=== PATIENT | male | born 1975 | race Caucasian/White ===

== ENCOUNTER 2018-01-04 14:31 | Observation (INO) | payer OTHER ==
--- NOTE | 2018-01-04 15:34 | RAD REPORT ---
EXAM DESCRIPTION: Jayme Single View01/04/2018 3:26 pm CLINICAL HISTORY: Chest pain COMPARISON: none FINDINGS: The lungs appear clear of acute infiltrate. The heart is normal size IMPRESSION: No acute abnormalities displayed
[2018-01-04] MEDS ORDERED: METOPROLOL TAR 50 MG TAB ONE (15:47)
[2018-01-04] MEDS ORDERED: ASPIRIN 81 MG CHEWABLE TABLET ONE (15:47)
[2018-01-04] MEDS ORDERED: NA CHLORIDE 0.9% 1,000 ML ONE (15:48)
[2018-01-04] MEDS ORDERED: FAMOTIDINE 20 MG/2 ML VIAL IV ONE (15:48)
[2018-01-04 16:05] LABS: Protime INR 1.11
[2018-01-04 16:07] LABS: Absolute Lymphocytes (CBC) 1.2 K/uL (0.7-4.9); Absolute Monocytes 0.5 K/uL (0.1-1.3); Absolute Neutrophil 8.3 K/uL (1.8-8.0); Basophils % 0.4 % (0-1.3); Hematocrit 45.5 % (39.6-49.0); Lymphocytes % 12.1 % (15.3-44.8); MCH 30.7 pg (27.0-35.0); MCV 87.1 fL (80-100); MPV 9.5 fL (7.6-11.3); Monocytes % 5.3 % (3.3-12.3); RBC Red Blood Cell Count 5.22 M/uL (4.33-5.43)
[2018-01-04] MEDS ORDERED: LIDOCAINE VISCOUS 2% SOLN 15 ML UDC ONE (16:10)
[2018-01-04] MEDS ORDERED: MAGNE/ALUM HYDROXD 30 ML UCUP ONE (16:10)
[2018-01-04 16:13] LABS: ALT/SGPT 48 U/L (12-78); AST/SGOT 22 U/L (15-37); Albumin 4.5 g/dL (3.4-5.0); Alkaline Phosphatase 82 U/L (45-117); BUN Blood Urea Nitrogen 16 mg/dL (7-18); Bicarbonate 30 mmol/L (21-32); Bilirubin Direct 0.1 mg/dL (0-0.2); Bilirubin Total 0.4 mg/dL (0.2-1.0); Glucose Level 113 mg/dL (74-106); Lipase 139 U/L (73-393); Magnesium 2.1 mg/dL (1.8-2.4); NT PRO-BNP 7 pg/mL (<125); Potassium 4.5 mmol/L (3.5-5.1); Sodium Level 138 mmol/L (136-145); Troponin (Emerg Dept Use Only) < 0.02 ng/mL (0.0-0.045)
[2018-01-04 16:32] LABS: Urine Blood NEGATIVE (NEG); Urine Glucose NEGATIVE (NEG); Urine Protein NEGATIVE (NEG); Urine pH 6.5 (5.0-7.0)
--- NOTE | 2018-01-04 16:57 | RAD REPORT ---
EXAM DESCRIPTION: CT - Chest For Pe Angio - 01/04/2018 4:42 pm CLINICAL HISTORY: Chest pain. CHEST PAIN COMPARISON: No comparisons TECHNIQUE: CT angiogram of the pulmonary arteries was performed with MIP. All CT scans are performed using dose optimization technique as appropriate and may include automated exposure control or mA/KV adjustment according to patient size. FINDINGS: No evidence of pulmonary thromboembolism. No acute aortic finding demonstrated. The lungs are clear. No significant pericardial or pleural fluid. No concerning bony finding. IMPRESSION: No evidence of pulmonary thromboembolism. No acute lung findings.
--- NOTE | 2018-01-04 17:55 | ER ---
Nurse's Notes [facility] Name: Humphrey Samuels Age: 42 yrs Sex: Male : 1975 Arrival Date: 01/04/2018 Time: 14:36 Bed 17 Private MD: Diagnosis: Chest pain, unspecified;Functional dyspepsia Presentation: 01/04 14:37 Presenting complaint: Patient states: dizzyness and chest pressure, I have had issues ch with my GERD, and it feel like food is getting stuck when I eat. Last night and today I have had chest pressure and been very dizzy, with one normal BM then two rounds of diarrhea. Transition of care: patient was not received from another setting of care. Onset of symptoms was January 03, 2018. Risk Assessment: Do you want to hurt yourself or someone else? Patient reports no desire to harm self or others. Initial Sepsis Screen: Does the patient meet any 2 criteria? No. Patient's initial sepsis screen is negative. Does the patient have a suspected source of infection? No. Patient's initial sepsis screen is negative. Care prior to arrival: None. 14:37 Method Of Arrival: Ambulatory 14:37 Acuity: GENO 3 ch Triage Assessment: 14:41 General: Appears in no apparent distress. comfortable, Behavior is calm, cooperative, ch appropriate for age. Pain: Complains of pain in chest. Cardiovascular: Reports chest pressure/dizzyness. Historical: - Allergies: 14:41 No Known Allergies; ch - Home Meds: 14:41 Omeprazole Oral [Active]; cholestol medications [Active]; - PMHx: 14:41 cholesterol; GERD; IBS; ch - PSHx: 14:45 Appendectomy; rb1 - Immunization history:: Adult Immunizations up to date. - Social history:: Smoking status: Patient/guardian denies using tobacco. - Ebola Screening: : Patient negative for fever greater than or equal to 101.5 degrees Fahrenheit, and additional compatible Ebola Virus Disease symptoms Patient denies exposure to infectious person Patient denies travel to an Ebola-affected area in the 21 days before illness onset No symptoms or risks identified at this time. - Family history:: not pertinent. Screenin:45 Abuse screen: Denies threats or abuse. Nutritional screening: No deficits noted. rb1 Tuberculosis screening: No symptoms or risk factors identified. Fall Risk None identified. Assessment: 14:45 General: Appears in no apparent distress. comfortable, Behavior is calm, cooperative. rb1 Pain: Complains of pain in mid-sternal area Pain radiates to throat Pain currently is 3 out of 10 on a pain scale. Pain began x 1 week. Pain: Aggravated by eating. Neuro: Level of Consciousness is awake, alert, obeys commands, Oriented to person, place, time, situation. Cardiovascular: Capillary refill < 3 seconds is brisk in bilateral fingers. Respiratory: Airway is patent Respiratory effort is even, unlabored, Respiratory pattern is regular, symmetrical. GI: Reports diarrhea. : No signs and/or symptoms were reported regarding the genitourinary system. Derm: Skin is dry, Skin is normal, Skin temperature is warm. 14:45 General: Pt. c/o indigestion and acid reflex.. Neuro: Reports dizziness. rb1 15:45 Reassessment: Patient appears in no apparent distress at this time. No changes from rb1 previously documented assessment. 16:40 Reassessment: Patient appears in no apparent distress at this time. Patient and/or rb1 family updated on plan of care and expected duration. Pain level reassessed. Patient is alert, oriented x 3, equal unlabored respirations, skin warm/dry/pink. at bedside. 17:38 Reassessment: Patient appears in no apparent distress at this time. Provider at bedside.rb1 18:14 Reassessment: No changes from previously documented assessment. Patient and/or family rb1 updated on plan of care and expected duration. Pain level reassessed. Patient is alert, oriented x 3, equal unlabored respirations, skin warm/dry/pink. Pt. refused the Lovenox after being educated on the medication and purpose. Pt. stated, "All the tests came back good, they're just keeping me overnight to speak with cardiology in the morning. I don't want the shot. I don't feel it is necessary.". 18:19 Reassessment: I tried to call report to second floor and was put on hold. Then Sobeida rb1 asked if the nurse could call me back at my extension. 18:28 Reassessment: Dr. Del Angel is at the pt. bedside. rb1 19:29 Reassessment: Patient appears in no apparent distress at this time. Patient and/or jb4 family updated on plan of care and expected duration. Pain level reassessed. Patient is alert, oriented x 3, equal unlabored respirations, skin warm/dry/pink. Patient states feeling better. General: Appears in no apparent distress. comfortable, Behavior is calm, cooperative. Pain: Denies pain. Neuro: Level of Consciousness is awake, alert, obeys commands, Oriented to person, place, time, situation. Cardiovascular: Patient's skin is warm and dry. Respiratory: Airway is patent Respiratory effort is even, unlabored, Respiratory pattern is regular, symmetrical. GI: Reports intermittent nausea. Derm: Skin is intact, Skin is pink, warm \\T\\ dry. Vital Signs: 14:41 BP 160 / 96; Pulse 97; Resp 15; Temp 98.3; Pulse Ox 99% on R/A; Weight 91.63 kg; Height ch 5 ft. 9 in. (175.26 cm); Pain 3/10; 15:30 BP 139 / 90; Pulse 88; Resp 16; Pulse Ox 100% on R/A; rb1 16:30 BP 141 / 93; Pulse 87; Resp 15; Pulse Ox 100% ; rb1 17:30 BP 139 / 87; Pulse 75; Resp 16; Pulse Ox 99% on R/A; rb1 18:20 BP 142 / 99; Pulse 69; Resp 15; Pulse Ox 100% on R/A; rb1 19:00 BP 137 / 93; Pulse 74; Resp 16; Pulse Ox 98% on R/A; jb4 14:41 Body Mass Index 29.83 (91.63 kg, 175.26 cm) ED Course: 14:36 Patient arrived in ED. 14:38 Triage completed. 14:41 Arm band placed on left wrist. Patient placed in an exam room, on a stretcher. EKG ch completed in triage. Results shown to MD. 14:42 EKG done, by ekg technician. at1 14:45 Patient maintains SpO2 saturation greater than 95% on room air. rb1 14:45 Patient has correct armband on for positive identification. Bed in low position. Call rb1 light in reach. Side rails up X 1. Pulse ox on. NIBP on. Warm blanket given. 14:50 Alonzo Hill MD is Attending Physician. [facility] 15:19 Luda Petty, RN is Primary Nurse. rb1 15:26 XRAY Chest (1 view) In Process Unspecified. EDMS 15:30 Inserted saline lock: 20 gauge in right antecubital area, using aseptic technique. rb1 ,using aseptic technique. IV inserted by BRAXTON Lopez. Blood collected. 16:43 CT Chest For PE Angio In Process Unspecified. EDMS 16:43 REPEAT EKG DONE. sm3 17:54 Maribel Del Angel MD is Hospitalizing Provider. [facility] 19:00 Report given to OMER Colunga. rb1 19:40 No provider procedures requiring assistance completed. Patient admitted, IV remains in jb4 place. 20:26 Primary Nurse role handed off by Luda Petty, OMER jb4 20:26 Rajesh Lazaro, RN is Primary Nurse. jb4 Administered Medications: 15:50 Drug: Pepcid 20 mg Route: IVP; Site: right antecubital; rb1 17:32 Follow up: Response: No adverse reaction rb1 15:50 Drug: NS 0.9% 1000 ml Route: IV; Rate: 125 ml/hr; Site: right antecubital; rb1 15:51 Drug: Aspirin Chewable Tablet 324 mg Route: PO; rb1 16:30 Follow up: Response: No adverse reaction rb1 15:51 Drug: Lopressor (metoprolol TARTRATE) 50 mg Route: PO; rb1 16:30 Follow up: Response: No adverse reaction rb1 16:09 Drug: GI Cocktail without - (Maalox Suspension 30 ml, Lidocaine Liquid 2 % 15 rb1 ml) Route: PO; 16:30 Follow up: Response: No adverse reaction; Marked relief of symptoms rb1 18:14 Not Given (Patient Refused): Lovenox 1 mg/kg Sub-Q once rb1 Outcome: 17:54 Decision to Hospitalize by Provider. [facility] 19:40 Condition: stable jb4 19:40 Instructed on the need for admit, Demonstrated understanding of instructions. 19:40 Admitted to Med/surg accompanied by tech, via wheelchair, room 207, with chart. jb4 20:26 Patient left the ED. jb4 Signatures: Dispatcher [employer] EDMS Maria G Lugo, RN Alonzo Hdez ch, MD MD cha Gonzales, Amanda, electric motors salesperson EKG Tat1 Luda Petty RN RN rb1 Rajesh Lazaro RN RN 4 Daksha Roldan 3 Corrections: (The following items were deleted from the chart) 01/05 02:00 01/04 19:40 Admitted to Tele accompanied by tech, via wheelchair, room 419, with chart, jb4 Report called to OMER June jb4
--- NOTE | 2018-01-04 17:55 | EDPHYS ---
Physician Documentation [facility] Name: Humphrey Samuels Age: 42 yrs Sex: Male : 1975 Arrival Date: 01/04/2018 Time: 14:36 Bed 17 Private MD: ED Physician Alonzo Hill HPI: 01/04 15:26 This 42 yrs old Male presents to ER via Ambulatory with complaints of Chest nishant Pressure. 15:26 The patient or guardian reports chest pain that is located primarily in the substernal nishant area, epigastric area. Onset: 24 hour(s) ago. The pain does not radiate. Associated signs and symptoms: The patient has no apparent associated signs or symptoms. The chest pain is described as causing indigestion. Severity of pain: At its worst the pain was mild in the emergency department the pain is unchanged. The patient has experienced similar episodes in the past, several times. Historical: - Allergies: 14:41 No Known Allergies; ch - Home Meds: 14:41 Omeprazole Oral [Active]; cholestol medications [Active]; ch - PMHx: 14:41 cholesterol; GERD; IBS; ch - PSHx: 14:45 Appendectomy; rb1 - Immunization history:: Adult Immunizations up to date. - Social history:: Smoking status: Patient/guardian denies using tobacco. - Ebola Screening: : Patient negative for fever greater than or equal to 101.5 degrees Fahrenheit, and additional compatible Ebola Virus Disease symptoms Patient denies exposure to infectious person Patient denies travel to an Ebola-affected area in the 21 days before illness onset No symptoms or risks identified at this time. - Family history:: not pertinent. ROS: 15:26 Constitutional: Negative for fever, chills, and weight loss, Eyes: Negative for injury, nishant pain, redness, and discharge, ENT: Negative for injury, pain, and discharge, Neck: Negative for injury, pain, and swelling, Respiratory: Negative for shortness of breath, cough, wheezing, and pleuritic chest pain, Back: Negative for injury and pain, : Negative for injury, bleeding, discharge, and swelling, MS/Extremity: Negative for injury and deformity, Skin: Negative for injury, rash, and discoloration, Neuro: Negative for headache, weakness, numbness, tingling, and seizure, Psych: Negative for depression, anxiety, suicide ideation, homicidal ideation, and hallucinations, Allergy/Immunology: Negative for hives, rash, and allergies, Endocrine: Negative for neck swelling, polydipsia, polyuria, polyphagia, and marked weight changes, Hematologic/Lymphatic: Negative for swollen nodes, abnormal bleeding, and unusual bruising. 15:26 Cardiovascular: Positive for chest pain. 15:26 Abdomen/GI: Positive for abdominal pain, of the epigastric area. Exam: 15:26 Constitutional: This is a well developed, well nourished patient who is awake, alert, nishant and in no acute distress. Head/Face: Normocephalic, atraumatic. Eyes: Pupils equal round and reactive to light, extra-ocular motions intact. Lids and lashes normal. Conjunctiva and sclera are non-icteric and not injected. Cornea within normal limits. Periorbital areas with no swelling, redness, or edema. ENT: Nares patent. No nasal discharge, no septal abnormalities noted. Tympanic membranes are normal and external auditory canals are clear. Oropharynx with no redness, swelling, or masses, exudates, or evidence of obstruction, uvula midline. Mucous membranes moist. Neck: Trachea midline, no thyromegaly or masses palpated, and no cervical lymphadenopathy. Supple, full range of motion without nuchal rigidity, or vertebral point tenderness. No Meningismus. Chest/axilla: Normal chest wall appearance and motion. Nontender with no deformity. No lesions are appreciated. Cardiovascular: Regular rate and rhythm with a normal S1 and S2. No gallops, murmurs, or rubs. Normal PMI, no JVD. No pulse deficits. Respiratory: Lungs have equal breath sounds bilaterally, clear to auscultation and percussion. No rales, rhonchi or wheezes noted. No increased work of breathing, no retractions or nasal flaring. Abdomen/GI: Soft, non-tender, with normal bowel sounds. No distension or tympany. No guarding or rebound. No evidence of tenderness throughout. Back: No spinal tenderness. No costovertebral tenderness. Full range of motion. Male : Normal genitalia with no discharge or lesions. Skin: Warm, dry with normal turgor. Normal color with no rashes, no lesions, and no evidence of cellulitis. MS/ Extremity: Pulses equal, no cyanosis. Neurovascular intact. Full, normal range of motion. Neuro: Awake and alert, GCS 15, oriented to person, place, time, and situation. Cranial nerves II-XII grossly intact. Motor strength 5/5 in all extremities. Sensory grossly intact. Cerebellar exam normal. Normal gait. Psych: Awake, alert, with orientation to person, place and time. Behavior, mood, and affect are within normal limits. Vital Signs: 14:41 BP 160 / 96; Pulse 97; Resp 15; Temp 98.3; Pulse Ox 99% on R/A; Weight 91.63 kg; Height ch 5 ft. 9 in. (175.26 cm); Pain 3/10; 15:30 BP 139 / 90; Pulse 88; Resp 16; Pulse Ox 100% on R/A; rb1 16:30 BP 141 / 93; Pulse 87; Resp 15; Pulse Ox 100% ; rb1 17:30 BP 139 / 87; Pulse 75; Resp 16; Pulse Ox 99% on R/A; rb1 18:20 BP 142 / 99; Pulse 69; Resp 15; Pulse Ox 100% on R/A; rb1 19:00 BP 137 / 93; Pulse 74; Resp 16; Pulse Ox 98% on R/A; jb4 14:41 Body Mass Index 29.83 (91.63 kg, 175.26 cm) ch MDM: 14:50 Patient medically screened. [facility] 15:33 Data reviewed: vital signs, nurses notes, lab test result(s), EKG, radiologic studies, nishant plain films. 01/04 15:02 Order name: Basic Metabolic Panel; Complete Time: 16:16 [facility] 01/04 15:02 Order name: CBC with Diff; Complete Time: 16:16 [facility] 01/04 15:02 Order name: LFT's; Complete Time: 16:16 [facility] 01/04 15:02 Order name: Magnesium; Complete Time: 16:16 [facility] 01/04 15:02 Order name: NT PRO-BNP; Complete Time: 16:16 [facility] 01/04 15:02 Order name: PT-INR; Complete Time: 16:16 [facility] 01/04 15:02 Order name: Troponin (emerg Dept Use Only); Complete Time: 16:16 [facility] 01/04 15:02 Order name: XRAY Chest (1 view); Complete Time: 16:16 [facility] 01/04 15:02 Order name: Lipase; Complete Time: 16:16 [facility] 01/04 16:01 Order name: Urine Dipstick--Ancillary (enter results) 01/04 16:01 Order name: Urine Dipstick-Ancillary; Complete Time: 17:00 [facility] 01/04 16:18 Order name: Troponin (emerg Dept Use Only) [facility] 01/04 16:21 Order name: Troponin (emerg Dept Use Only) [facility] 01/04 17:20 Order name: Troponin (emerg Dept Use Only); Complete Time: 18:10 [facility] 01/04 15:02 Order name: EKG; Complete Time: 15:03 [facility] 01/04 15:02 Order name: Cardiac monitoring; Complete Time: 17:33 [facility] 01/04 15:02 Order name: EKG - Nurse/Tech; Complete Time: 17:33 [facility] 01/04 15:02 Order name: IV Saline Lock; Complete Time: 15:52 [facility] 01/04 15:02 Order name: Labs collected and sent; Complete Time: 15:52 [facility] 01/04 16:18 Order name: CT Chest For PE Angio; Complete Time: 17:00 [facility] 01/04 16:19 Order name: EKG; Complete Time: 16:20 [facility] 01/04 16:21 Order name: Echo w/ Doppler [facility] 01/04 17:58 Order name: CONS Physician Consult [facility] 01/04 17:58 Order name: CONS Physician Consult [facility] 01/04 15:02 Order name: O2 Per Protocol; Complete Time: 15:30 [facility] 01/04 15:02 Order name: O2 Sat Monitoring; Complete Time: 15:30 [facility] 01/04 16:19 Order name: EKG - Nurse/Tech; Complete Time: 17:17 [facility] 01/04 16:21 Order name: Repeat Cardiac Enzymes at: 500 pm; Complete Time: 17:57 [facility] Administered Medications: 15:50 Drug: Pepcid 20 mg Route: IVP; Site: right antecubital; rb1 17:32 Follow up: Response: No adverse reaction rb1 15:50 Drug: NS 0.9% 1000 ml Route: IV; Rate: 125 ml/hr; Site: right antecubital; rb1 15:51 Drug: Aspirin Chewable Tablet 324 mg Route: PO; rb1 16:30 Follow up: Response: No adverse reaction rb1 15:51 Drug: Lopressor (metoprolol TARTRATE) 50 mg Route: PO; rb1 16:30 Follow up: Response: No adverse reaction rb1 16:09 Drug: GI Cocktail without - (Maalox Suspension 30 ml, Lidocaine Liquid 2 % 15 rb1 ml) Route: PO; 16:30 Follow up: Response: No adverse reaction; Marked relief of symptoms rb1 18:14 Not Given (Patient Refused): Lovenox 1 mg/kg Sub-Q once rb1 Disposition: 01/04/18 17:54 Hospitalization ordered by Maribel Del Angel for Observation. Preliminary diagnosis are Chest pain, unspecified, Functional dyspepsia. - Bed requested for Telemetry/MedSurg (observation). - Status is Observation. jb4 - Condition is Stable. - Problem is new. - Symptoms have improved. UTI on Admission? No Signatures: Dispatcher [employer] EDMS Maria G Lugo, RN RN Shira Mejia RN RN Alonzo Rasmussen MD MD cha Barber, Rebecca, RN OMER rb1 Rajesh Lazaro RN RN jb4 Corrections: (The following items were deleted from the chart) 16:20 16:18 Repeat Cardiac Enzymes at [facility] 18:13 17:54 Hospitalization Ordered by Maribel Del Angel MD for Observation. Preliminary diagnosis dw is Chest pain, unspecified; Functional dyspepsia. Bed requested for Telemetry/MedSurg (observation). Status is Observation. Condition is Stable. Problem is new. Symptoms have improved. UTI on Admission? No. [facility] 20:26 18:13 01/04/2018 17:54 Hospitalization Ordered by Maribel Del Angel MD for Observation. jb4 Preliminary diagnosis is Chest pain, unspecified; Functional dyspepsia. Bed requested for Telemetry/MedSurg (observation). Status is Observation. Condition is Stable. Problem is new. Symptoms have improved. UTI on Admission? No. dw
[2018-01-04] MEDS ORDERED: ENOXAPARIN 100 MG/ML SYR SQ ONE (18:15)
--- NOTE | 2018-01-04 18:56 | P.HP ---
Certification for Inpatient Patient admitted to: Observation With expected LOS: <2 Midnights Practitioner: I am a practitioner with admitting privileges, knowledge of patient current condition, hospital course, and medical plan of care. Services: Services provided to patient in accordance with Admission requirements found in Title 42 Section 412.3 of the Code of Federal Regulations Patient History Date of Service: 01/04/18 Reason for admission: Chest pressure History of Present Illness: This is a 42-year-old male with history of GERD admitted for chest pressure. States that this has been going on for the past 2 weeks, progressively worsening. Now associated with dizziness, lightheadedness and intermittent nausea not alleviated with his previous reflux medications. Denies any shortness of breath, vision changes, headaches, fevers, chills or any abdominal or issues. Allergies No Known Allergies Allergy (Unverified 01/04/18 18:42) - Past Medical/Surgical History -: GERD - Social History Smoking Status: Never smoker Review of Systems General: Unremarkable Eyes: Unremarkable ENT: Unremarkable Respiratory: Unremarkable Cardiovascular: Chest Pain, Light Headedness, As per HPI Gastrointestinal: Unremarkable Genitourinary: Unremarkable Musculoskeletal: Unremarkable Integumentary: Unremarkable Neurological: Unremarkable Physical Examination - Physical Exam General: Alert, In no apparent distress HEENT: Atraumatic, PERRLA, Mucous membr. moist/pink, EOMI, Sclerae nonicteric Neck: Supple, 2+ carotid pulse no bruit, No LAD, Without JVD or thyroid abnormality Respiratory: Clear to auscultation bilaterally, Normal air movement Cardiovascular: Regular rate/rhythm, Normal S1 S2 Gastrointestinal: Normal bowel sounds, No tenderness Musculoskeletal: No tenderness Integumentary: No rashes Neurological: Normal gait, Normal speech, Normal strength at 5/5 x4 extr, Normal tone, Normal affect Lymphatics: No axilla or inguinal lymphadenopathy - Studies Laboratory Data (last 24 hrs) 01/04/18 15:40: PT 13.1 H, INR 1.11 01/04/18 15:40: WBC 10.3, Hgb 16.0, Hct 45.5, Plt Count 247 01/04/18 15:40: Sodium 138, Potassium 4.5, BUN 16, Creatinine 1.00, Glucose 113 H, Magnesium 2.1, Total Bilirubin 0.4, AST 22, ALT 48, Alkaline Phosphatase 82, Lipase 139 Assessment and Plan - Problems (Diagnosis) (1) Chest pain, rule out acute myocardial infarction Current Visit: Yes Status: Acute Plan: Admit for observation on tele. Trend troponins and EKG. Cardiology consulted from the ER. Continue aspirin. Morphine and nitro p.r.n. pain Oxygen via nasal cannula as needed (2) GERD (gastroesophageal reflux disease) Current Visit: Yes Status: Acute Plan: Patient with a lot of her related issues in the past. This time pain not alleviated with history normal medications. Dr. dyer, camera repair technician has been consulted from the ER. We will try an attempt to get in touch with him tomorrow if not patient may have to followup outpatient. Start Protonix. Quick Discharge Plan: Home Plan to discharge in: 24 Hours - Advance Directives Does patient have a Living Will: No Does patient have a Durable POA for Healthcare: No
[2018-01-04] MEDS ORDERED: ALBUTEROL 2.5 MG/3 ML NEB SOL NEB PRN (20:03)
[2018-01-04] MEDS ORDERED: ACETAMINOPHEN 500 MG TAB PO PRN (20:03)
[2018-01-04] MEDS ORDERED: NITROGLYCERIN 0.4 MG/TAB SL PRN (20:03)
[2018-01-04] MEDS ORDERED: PANTOPRAZOLE 40MG TABLET PO ONE (20:03)
[2018-01-04] MEDS ORDERED: ONDANSETRON 4 MG/2 ML VIAL IV PRN (20:03)
[2018-01-04] MEDS: MAGNES/ALUMIN/SIMET 30ML UCUP PO PRN (23:12)
[2018-01-05 05:37] LABS: Absolute Lymphocytes (CBC) 2.4 K/uL (0.7-4.9); Absolute Monocytes 0.7 K/uL (0.1-1.3); Absolute Neutrophil 4.6 K/uL (1.8-8.0); Basophils % 0.9 % (0-1.3); Eosinophils % 3.6 % (0-4.4); Lymphocytes % 30.1 % (15.3-44.8); MCH 31.1 pg (27.0-35.0); MPV 9.2 fL (7.6-11.3); Monocytes % 8.3 % (3.3-12.3)
[2018-01-05 05:56] LABS: ALT/SGPT 41 U/L (12-78); AST/SGOT 22 U/L (15-37); Albumin 3.9 g/dL (3.4-5.0); Alkaline Phosphatase 77 U/L (45-117); BUN Blood Urea Nitrogen 13 mg/dL (7-18); Bicarbonate 25 mmol/L (21-32); Bilirubin Total 0.4 mg/dL (0.2-1.0); CKMB Creatine Kinase MB < 1.0 ng/mL (0.3-3.6); Creatine Phosphokinase 51 U/L (39-308); Glucose Level 95 mg/dL (74-106); Phosphorus 3.2 mg/dL (2.5-4.9); Potassium 3.9 mmol/L (3.5-5.1); Protein, Total 7.3 g/dL (6.4-8.2); Sodium Level 139 mmol/L (136-145); Troponin I < 0.02 ng/mL (0.0-0.045)
[2018-01-05] MEDS ORDERED: POTASSIUM CL SA 10 MEQ TAB PO ONE (06:21)
[2018-01-05] MEDS ORDERED: PANTOPRAZOLE 40MG TABLET PO SCH (06:30)
--- NOTE | 2018-01-05 07:52 | EKG ---
Test Date: 2018-01-04 Test Time: 16:40:04 Coke Burner: SHARLA MEASUREMENT RESULTS: Intervals: Rate: 102 DE: 140 QRSD: 78 QT: 334 QTc: 435 [place]: P: 48 DE: 140 QRS: 40 T: 40 INTERPRETIVE STATEMENTS: Sinus tachycardia Possible Left atrial enlargement Borderline ECG Compared to ECG 01/04/2018 14:36:36 Sinus rhythm no longer present Electronically Signed On 01-05-18 07:51:32 CDT by Adrien Shah
--- NOTE | 2018-01-05 07:53 | EKG ---
Test Date: 2018-01-04 Test Time: 14:36:36 Telegraph Inspector: SHERRY MEASUREMENT RESULTS: Intervals: Rate: 91 ID: [id number] QRSD: 76 QT: 348 QTc: 428 [place]: P: 45 ID: [id number] QRS: 27 T: 40 INTERPRETIVE STATEMENTS: Normal sinus rhythm Normal ECG No previous ECG available for comparison Electronically Signed On 01-05-18 07:51:56 CDT by Adrien Shah
[2018-01-05] MEDS ORDERED: INFLUENZA VACCINE (for 3y+) 0.5 ML DOSE IMVAC ONE (08:00)
--- NOTE | 2018-01-05 08:02 | ECHO ---
HEIGHT: 5 ft 9 in WEIGHT: 198 lb 12.8 oz DATE OF STUDY: 01/04/[address]: Alonzo Hill MD 2-DIMENSIONAL: YES M.MODE: YES DOPPLER: YES COLOR FLOW: YES TDS: NO PORTABLE: NO DEFINITY: NO BUBBLE STUDY: NO DIAGNOSIS: CHEST PAIN CARDIAC HISTORY: CATHERIZATION: NO SURGERY: NO PROSTHETIC VALVE: NO PACEMAKER: NO MEASUREMENTS (cm) DIASTOLIC (NORMALS) SYSTOLIC (NORMALS) IVSd 0.8 (0.6-1.2) LA Diam 2.8 (1.9-4.0) LVEF 65% LVIDd 4.9 (3.5-5.7) LVIDs 3.1 (2.0-3.5) %FS 36% LVPWd 0.9 (0.6-1.2) Ao Diam 2.9 (2.0-3.7) 2 DIMENSIONAL ASSESSMENT: RIGHT ATRIUM: NORMAL LEFT ATRIUM: NORMAL RIGHT VENTRICLE: NORMAL LEFT VENTRICLE: NORMAL TRICUSPID VALVE: NORMAL MITRAL VALVE: NORMAL PULMONIC VALVE: NORMAL AORTIC VALVE: NORMAL PERICARDIAL EFFUSION: NONE AORTIC ROOT: NORMAL LEFT VENTRICULAR WALL MOTION: DOPPLER/COLOR FLOW: PHYSIOLOGIC TRICUSPID REGURGITATION. NORMAL RIGHT VENTRICULAR SYSTOLIC PRESSURE. COMMENTS: NORMAL 2D ECHOCARDIORAM WITH DOPPLER. TECHNOLOGIST: Francisco HESS
[2018-01-05] MEDS: MAGNES/ALUMIN/SIMET 30ML UCUP PO PRN (08:51)
[2018-01-05] MEDS ORDERED: ROSUVASTATIN 10 MG TAB PO SCH ×2 (09:00→21:00)
[2018-01-05] MEDS ORDERED: ENOXAPARIN 40 MG/0.4 ML SQ SCH (09:00)
--- NOTE | 2018-01-05 14:31 | TREADMILL ---
70% H.R.: 123 85% H.R.: 150 90% H.R.: 158 100% H.R.: 176 DX: CHEST PAIN Date of Study: 01/05/2018 Ht: 5 9 Wt: 198 lb 12.8 oz Consulting Physician: JN MEDICATIONS: TYLENOL, PROVENTIL, LOVENOX, NITROSTAT, ZOFRAN, PROTONIX HISTORY: 42 YEAR OLD MALE WITH CHEST PAIN. PHYSICIAL EXAMINATION: RESTING B.P.: 116/85 RESTING H.R.: 88 RESTING EKG: NORMAL PROTOCOL: CAMERON/ ROUTINE EXERCISE TIME: 7:32 MAXIMUM HEART RATE: 162 % OF PREDICTED B.P. AT PEAK STRESS: 145/72 H.R. AT 1 MINUTE POST EXERCISE: 148 IMPRESSION: ROUTINE BRUCCE STRESS TEST STOPPED FOR FATIGUE AND TARGET HEART RATE REACHED. NO CHEST PAIN. NO VENTRICULAR TACHYCARDIA. NORMAL STRESS TEST. NO ST DEPRESSION WITH STRESS.
--- NOTE | 2018-01-05 15:34 | CON ---
A 42-year-old man. History Of Present Illness: Mr. Samuels had chest pain. He had several days of it in a row without any relief. It went away for a day and returned. The pain is constant, located in the epigastric regio n, does not seem to go away and not exacerbated by anything, swallowing foods seemed to help. Stanleya l years ago, he was found to have gastroesophageal reflux disease with a stricture. It was ballooned . Now, this pain feels like a peanut butter sandwich is stuck in his esophagus. He is able to work normally and does not have exertional intolerance, dyspnea. No nausea or vomiting. There has been a little sweating. He has dyslipidemia that is well controlled using Crestor. He also takes vitamin C, vitamin D3, omeprazole, omega-3 fatty acid, and multivitamins. He uses no tobacco. There is no h istory of myocardial infarction, stroke, diabetes. Physical Examination: Vital signs: 5 feet 9 inches, 198 pounds. General: Overweight. Alert, oriented, pleasant, not in distress. Neck: No carotid bruit. Lungs: Clear. Heart: Normal. Extremities: Normal. Laboratory Data: Electrocardiogram is normal. His troponins are normal. I would recommend we do a stress test and echo. If those are normal, he should see his GI doctor and perhaps he needs another esophageal dilation. His echocardiogram is normal. Thank you very much for your kind referral of Mr. Samuels. I will follow him with you. JULIANNE Voice ID: [id number] Report ID: [id number]
--- NOTE | 2018-01-05 17:44 | P.SSS ---
Patient History Date of Service: 01/05/18 Primary Care Provider: In [place] Reason for admission: Chest pressure History of Present Illness: This is a 42-year-old male with history of GERD admitted for chest pressure. States that this has been going on for the past 2 weeks, progressively worsening. Now associated with dizziness, lightheadedness and intermittent nausea not alleviated with his previous reflux medications. Denies any shortness of breath, vision changes, headaches, fevers, chills or any abdominal or issues. Allergies No Known Allergies Allergy (Unverified 01/04/18 18:42) Home Medications: Ascorbic Acid [Vitamin C] 1,000 mg PO DAILY 01/04/18 Cholecalciferol (Vitamin D3) [Vitamin D3] 2,000 unit PO DAILY 01/04/18 Multivit-Minerals/Folic Acid [Men's Multivitamin Gummies] 200 gm PO DAILY [place]-3 Fatty Acids/Fish Oil [Fish Oil 1,000 mg Capsule] 1,000 cap PO DAILY Omeprazole 20 mg PO DAILY 01/04/18 Rosuvastatin Calcium 40 mg PO DAILY 01/04/18 Albuterol Inhaler [Ventolin Inhaler*] 2 puff IH Q6H PRN #1 hfa.aer.ad 01/05/18 - Past Medical/Surgical History Has patient received pneumonia vaccine in the past: No Diabetic: No -: GERD -: IBS -: Appendectomy - Family History Father History Unknown: Yes -: Heart disease, Lung disease, Stroke - Social History Smoking Status: Never smoker Alcohol use: No CD- Drugs: No Caffeine use: Yes Place of Residence: Home Review of Systems 10-point ROS is otherwise unremarkable Physical Examination - Vital Signs Temperature: 98.3 F Blood Pressure: 120/70 Pulse: 70 Respirations: 16 Pulse Ox (%): 98 - Physical Exam General: Alert, In no apparent distress HEENT: Atraumatic, PERRLA, Mucous membr. moist/pink, EOMI, Sclerae nonicteric Neck: Supple, 2+ carotid pulse no bruit, No LAD, Without JVD or thyroid abnormality Respiratory: Clear to auscultation bilaterally, Normal air movement Cardiovascular: Regular rate/rhythm, Normal S1 S2 Gastrointestinal: Normal bowel sounds, No tenderness Musculoskeletal: No tenderness Integumentary: No rashes Neurological: Normal gait, Normal speech, Normal strength at 5/5 x4 extr, Normal tone, Normal affect Lymphatics: No axilla or inguinal lymphadenopathy - Studies Laboratory Data (last 24 hrs) 01/04/18 15:40: PT 13.1 H, INR 1.11 01/04/18 15:40: WBC 10.3, Hgb 16.0, Hct 45.5, Plt Count 247 01/04/18 15:40: Sodium 138, Potassium 4.5, BUN 16, Creatinine 1.00, Glucose 113 H, Magnesium 2.1, Total Bilirubin 0.4, AST 22, ALT 48, Alkaline Phosphatase 82, Lipase 139 - Diagnosis (Problem(s)) (1) Chest pain, rule out acute myocardial infarction Onset Date: 01/05/18 Current Visit: Yes Status: Acute (2) GERD (gastroesophageal reflux disease) Onset Date: 01/05/18 Current Visit: Yes Status: Acute Treatment Summary: Overall during the hospital stay patient remained stable Patient was admitted to the hospital for chest pressure and pain. Patient was to have a C history ruled out here in the hospital. Patient had echocardiogram and stress test done which were was within normal limits. Patient has a long history of GERD most likely his pain is secondary to reflux along with asthma. Patient was educated extensively on the disease process and was asked to follow up with a primary care provider along with GI doctor and a diamond sizer and grader. Patient demonstrated understanding and thus was discharged home under stable condition - Disposition Disposition: ROUTINE DISCHARGE Condition: GOOD Patient Discharge Instructions: Please f.u with PCP and Dr Aleman in 1 to 2 weeks. New medication. Albuetrol 2puff q6h for SOB Diet: Regular Activity: Ad chris
== END 2018-01-05 15:42 | disposition home or self-care (01) ==
LOC: ER 14:31 → ERHOLD 17:56 → 2ND 19:57
PROVIDERS: ADMIT Family Medicine; ATTEND Family Medicine
DX: R07.9 Chest pain, unspecified (principal); K21.9 Gastro-esophageal reflux disease without esophagitis
CPT/HCPCS: 36415; 71045; 71275; 80048; 80053; 80076; 81003; 82550; 82553; 83690; 83735; 83880; 84100; 84484; 85025; 85610; 93005; 93017; 93306; 94760; 96374; 99285; G0378; J1650; J2405; J7030; Q2035; Q9967